=== PATIENT | male | born 1990 | race Two or more races ===

== ENCOUNTER 2020-08-21 00:56 | Emergency (ER) | payer OTHER ==
[~2020-08-21] VITALS: Ht 172.7 cm; Wt 72.6 kg
[2020-08-21 01:00] VITALS: BP 154/82
--- NOTE | 2020-08-21 01:32 | NUR ---
PT IS MEDICALLY STABLE FOR D/C PER MD. [facility] discharged to [facility] in custody in stable condition. Written and verbal after care instructions given.
== END 2020-08-21 01:53 ==
LOC: ER 00:58
DX: S00.83XA Contusion of other part of head, initial encounter (principal); Z02.89 Encounter for other administrative examinations; Z59.0 Homelessness; X58.XXXA Exposure to other specified factors, initial encounter; Y93.89 Activity, other specified; Y92.89 Other specified places as the place of occurrence of the external cause; Y99.8 Other external cause status